=== PATIENT | female | born 2000 | race Caucasian/White ===

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

== ENCOUNTER 2018-04-17 08:17 | Emergency (ER) | payer OTHER ==
[2018-04-17 08:23] VITALS: BP 118/74; PULSE 75; RESP 18; O2SAT 97
--- NOTE | 2018-04-17 08:34 | ED PDOC ---
HPI: General Adult Time Seen by Provider: 04/17/18 08:28 Chief Complaint (Nursing): Flu-like Symptoms History Per: Patient Onset/Duration Of Symptoms: Days Current Symptoms Are (Timing): Still Present Severity: Mild Additional Complaint(s): Sore throat and body aches x 2 days. Denies fever or cough. Past Medical History Vital Signs: Last Vital Signs Temp 99.1 F 04/17/18 08:21 Pulse 75 04/17/18 08:21 Resp 18 04/17/18 08:21 BP 118/74 04/17/18 08:21 Pulse Ox 97 04/17/18 08:21 - Medical History PMH: No Chronic Diseases - Family History Family History: States: Unknown Family Hx - Home Medications Home Medications: Ambulatory Orders Medication Instructions Recorded Ibuprofen [Motrin] 600 mg PO Q8 #20 tab 07/17/17 Azithromycin [Zithromax] 250 mg PO DAILY #6 tab 04/17/18 - Allergies Allergies/Adverse Reactions: Allergies Allergy/AdvReac Type Severity Reaction Status Date / Time lentils Allergy SHORTNESS Verified 07/17/17 08:28 OF BREATH peanuts Allergy SHORTNESS Uncoded 07/17/17 08:27 OF BREATH Review of Systems Constitutional: Negative for: Fever ENT: Positive for: Throat Pain Respiratory: Negative for: Cough Physical Exam - Physical Exam Appears: Positive for: Non-toxic, No Acute Distress Skin: Positive for: Normal Color, Warm, DRY ENT: Positive for: Pharyngeal Erythema, Tonsillar Swelling. Negative for: Tonsillar Exudate Neck: Positive for: Normal, Painless ROM Cardiovascular/Chest: Positive for: Regular Rate, Rhythm Respiratory: Positive for: CNT, Normal Breath Sounds Extremity: Positive for: Normal ROM Neurologic/Psych: Positive for: Alert, Oriented - ECG O2 Sat by Pulse Oximetry: 97 Disposition - Clinical Impression Clinical Impression: Pharyngitis - Patient ED Disposition Is Patient to be Admitted: No Counseled Patient/Family Regarding: Studies Performed, Diagnosis, Need For Followup, Rx Given - Disposition Referrals: [facility] [Outside] Disposition: Routine/Home Disposition Time: 08:33 Condition: FAIR Prescriptions: Azithromycin [Zithromax] 250 mg PO DAILY #6 tab Instructions: Sore Throat in Adults
[2018-04-17 09:31] VITALS: TEMP 98.9
== END 2018-04-17 08:34 | disposition home or self-care (01) ==
LOC: H.ER 08:17
DX: J02.9 Acute pharyngitis, unspecified (principal)

== ENCOUNTER 2018-08-30 18:28 | Emergency (ER) | payer BC, OTHER ==
[2018-08-30 18:38] VITALS: BP 117/72; PULSE 64; RESP 16; TEMP 98.6; O2SAT 99
--- NOTE | 2018-08-30 19:02 | ED PDOC ---
HPI: CCC, URI, Sore Throat Time Seen by Provider: 08/30/18 19:00 Chief Complaint (Nursing): ENT Problem Chief Complaint (Provider): Throat pain History Per: Patient History/Exam Limitations: no limitations Current Symptoms Are (Timing): Still Present Additional Complaint(s): 17 y/o female, with no medical problems, presents to the ER with 4 days history of throat pain, worsening over the last few days. Patient reports she is feeling chills and sweaty but temperature is unknown. Denies cough, nausea, vomiting, headache, or sick contacts. She states, today, pain has worsened and is mostly to the right side radiating to the ear. PMD: Sunil Reina Past Medical History Reviewed: Historical Data, Nursing Documentation, Vital Signs Vital Signs: Last Vital Signs Temp 98.6 F 08/30/18 18:37 Pulse 64 08/30/18 18:37 Resp 16 08/30/18 18:37 BP 117/72 08/30/18 18:37 Pulse Ox 99 08/30/18 18:37 Primary Care Provider: Sunil Celis - Medical History PMH: Asthma - Surgical History Surgical History: No Surg Hx - Family History Family History: States: Unknown Family Hx - Home Medications Home Medications: Ambulatory Orders Medication Instructions Recorded Ibuprofen [Motrin] 600 mg PO Q8 #20 tab 07/17/17 Azithromycin [Zithromax] 250 mg PO DAILY #6 tab 04/17/18 Amoxicillin 500 mg PO BID #20 tablet 08/30/18 - Allergies Allergies/Adverse Reactions: Allergies Allergy/AdvReac Type Severity Reaction Status Date / Time lentils Allergy SHORTNESS Verified 07/17/17 08:28 OF BREATH peanuts Allergy SHORTNESS Uncoded 07/17/17 08:27 OF BREATH Review of Systems ROS Statement: Except As Marked, All Systems Reviewed And Found Negative Constitutional: Positive for: Chills ENT: Positive for: Throat Pain Respiratory: Negative for: Cough Gastrointestinal: Negative for: Nausea, Vomiting Neurological: Negative for: Headache Physical Exam - Reviewed Nursing Documentation Reviewed: Yes Vital Signs Reviewed: Yes - Physical Exam Appears: Positive for: No Acute Distress Head Exam: Positive for: ATRAUMATIC, NORMOCEPHALIC Skin: Positive for: Normal Color, Warm, Dry Eye Exam: Positive for: Normal appearance ENT: Positive for: Pharynx Is (erythematous (posterior pharynx)), TM Is/Are (normal), Tonsillar Exudate (right side), Tonsillar Swelling (bilateral tonsilar swelling moreso to the right side with erythema), Other (hoarse voice noted) Neck: Positive for: Normal, Painless ROM Cardiovascular/Chest: Positive for: Regular Rate, Rhythm Respiratory: Positive for: Normal Breath Sounds. Negative for: Wheezing, Respiratory Distress Extremity: Positive for: Normal ROM Neurological/Psych: Positive for: Awake, Alert, Normal Tone - ECG O2 Sat by Pulse Oximetry: 99 (RA) Pulse Ox Interpretation: Normal Medical Decision Making Medical Decision Making: Initial Impression: Throat pain Initial Plan: Tylenol 650mg given in ER. Patient to be discharged home on Amoxicillin 500 twice a day for 10 days. Patient advised to follow up with PMD as needed. Return precautions given. Patient instructed to do salt water gargles and drink hot teas. patient states understanding and agrees with plan. Scribe Attestation: Documented by Samuel Serrano acting as a scribe for Angelina Burger NP. Provider Scribe Attestation: All medical record entries made by the Scribe were at my direction and personally dictated by me. I have reviewed the chart and agree that the record accurately reflects my personal performance of the history, physical exam, medical decision making, and the department course for this patient. I have also personally directed, reviewed, and agree with the discharge instructions and disposition. Disposition - Clinical Impression Clinical Impression: Pharyngitis - Patient ED Disposition Is Patient to be Admitted: No Counseled Patient/Family Regarding: Diagnosis, Rx Given - Disposition Referrals: Sunil Celis MD [Family Provider] - Disposition: Routine/Home Disposition Time: 19:00 Condition: GOOD Prescriptions: Amoxicillin 500 mg PO BID #20 tablet Instructions: Sore Throat, Adult (DC), Bacterial Upper Respiratory Infection, Adult Print Language: ARABIC - POA Present On Arrival: None
== END 2018-08-30 19:51 | disposition home or self-care (01) ==
LOC: H.ER 18:28 → SUPCPDRO 18:28 → H.ER 19:51
DX: J02.9 Acute pharyngitis, unspecified (principal); J45.909 Unspecified asthma, uncomplicated